=== PATIENT | female | born 1990 ===

== ENCOUNTER 2018-05-27 16:28 | Emergency (ER) | payer OTHER ==
[2018-05-27 16:54] VITALS: BP 120/73; PULSE 79; RESP 16; TEMP 99.4; O2SAT 100
[2018-05-27 16:55] VITALS: BMI 32.3
--- NOTE | 2018-05-27 17:53 | CP.PCM.CON ---
History of Present Illness - History of Present Illness History of Present Illness: Podiatry Consult note for Dr. Cortez 27 year old female with no PMHx presents to ED with wound to her left foot. Patient states that about 3 weeks ago she got a new tattoo and a week later she noticed open lesion to the top of her foot. She states that she had this happen once before with a different tattoo but states that it got better on its own. She went to her PMD who suggested she come to the ED for further evaluation. She denies any drainage or malodor coming from her left foot. Currently denies any n/v/f/c/sob/cp. Meds Home Medications: Home Medication List Medication Instructions Recorded Confirmed Type Cephalexin [cephalexin] 500 mg PO Q6 #28 cap 05/27/18 Rx Fluconazole [Diflucan] 150 mg PO ONCE #1 tab 05/27/18 Rx Allergies/Adverse Reactions: Allergies Allergy/AdvReac Type Severity Reaction Status Date / Time No Known Allergies Allergy Verified 05/27/18 16:57 Physical Exam - Constitutional Appears: Well, Non-toxic, No Acute Distress - Extremities Exam Additional comments: lower extremity focused exam: Vasc:DP and PT pulses palpable 2/4 b/l. CFT < 3 seconds to all digits b/l. Skin temperature warm to cool from proximal to distal b/l. No edema noted Derm:Open lesions noted to the dorsum of the left foot and ankle on areas where the tattoo was applied, open lesion meausring approximately 2 cm by 1.5 cm noted to the dorsum of the midfoot with a granular base, smaller lesions noted more proximal with dried sanguinous drainage noted, no erythema, no edema, no purulence, no malodor no drainage noted. Neuro: Gross sensation intact b/l Ortho: Tenderness on palpation to left dorsum of foot at location of wounds - Neurological Exam Neurological exam: Alert, Oriented x3 - Psychiatric Exam Psychiatric exam: Normal Affect, Normal Mood Results - Vital Signs Recent Vital Signs: Last Vital Signs Temp 99.4 F 05/27/18 16:54 Pulse 79 05/27/18 16:54 Resp 16 05/27/18 16:54 BP 120/73 05/27/18 16:54 Pulse Ox 100 05/27/18 16:54 Assessment & Plan - Assessment and Plan (Free Text) Assessment: 27 year old female with open wounds to her left dorsum foot Plan: patient examined and evaluated discussed in detail with attending, Dr. Cortez chart and vitals reviewed discussed the importance of local wound care and keeping area clean patient to clean wounds with warm water and them pat dry, apply bacitrain and bandaid and keep covered discussed with patient the need for a biopsy, she refused at this time but will consider in the future if wounds do not heel Abx given per ED PA patient to follow up with Dr. Cortez in office
--- NOTE | 2018-05-27 18:53 | ED PDOC ---
HPI: Wound Care - HPI Time Seen by Provider: 05/27/18 17:10 Chief Complaint (Nursing): Wound Check Chief Complaint (Provider): Wound Check History Per: Patient Exam Limitations: no limitations Onset/Duration Of Symptoms: Days Current Symptoms Are (Timing): Still Present Location Of Injury: Left: Foot Additional Complaint(s): 27 year old female presents to the ED for an evaluation of infected tattoo on left foot. Patient states beginning of May, she received a tattoo on left foot in [place], [place]. One week later, she noticed a pruritic-like rash on one portion of the tattoo. She went to her PMD who advised her to the ED for further evaluation. PMD: Francisco Parrish Past Medical History Reviewed: Historical Data, Nursing Documentation, Vital Signs Vital Signs: Last Vital Signs Temp 99.4 F 05/27/18 16:54 Pulse 79 05/27/18 16:54 Resp 16 05/27/18 16:54 BP 120/73 05/27/18 16:54 Pulse Ox 100 05/27/18 16:54 - Medical History PMH: No Chronic Diseases - Family History Family History: States: Unknown Family Hx - Home Medications Home Medications: Ambulatory Orders Medication Instructions Recorded Cephalexin [cephalexin] 500 mg PO Q6 #28 cap 05/27/18 Fluconazole [Diflucan] 150 mg PO ONCE #1 tab 05/27/18 - Allergies Allergies/Adverse Reactions: Allergies Allergy/AdvReac Type Severity Reaction Status Date / Time No Known Allergies Allergy Verified 05/27/18 16:57 Review of Systems ROS Statement: Except As Marked, All Systems Reviewed And Found Negative Skin: Positive for: Rash (left foot) Physical Exam - Reviewed Nursing Documentation Reviewed: Yes Vital Signs Reviewed: Yes - Physical Exam Appears: Positive for: Non-toxic Head Exam: Positive for: ATRAUMATIC, NORMAL INSPECTION, NORMOCEPHALIC Skin: Positive for: Warm, Dry, Rash (dorsum of left foot with non intact vesicle or erythema or warmth) Pulses-Radial (L): 2+ Extremity: Positive for: Normal ROM. Negative for: Tenderness, Pedal Edema, Deformity Neurologic/Psych: Positive for: Alert, Oriented (x3). Negative for: Motor/ Sensory Deficits - ECG O2 Sat by Pulse Oximetry: 100 (RA) Pulse Ox Interpretation: Normal Medical Decision Making Medical Decision Making: Time: 1710 Initial Plan: --Reevaluation Patient with Rx from PMD instructing pt. to go to ED for IV antibiotics and blood work. She prefers to forego blood work and oral medication instead. Pt evaluated by Dr. Greene, who discussed case with Dr. Cortez and agrees patient can start oral antibiotics and does not need IV antibiotics. Patient also agrees with care. She was offered IV antibiotics and blood work once again but refused. Clinical Impression: Allergic Reaction Upon provider evaluation patient is medically stable, and requires no further treatment in the ED at this time. Patient will be discharged with Cephalexin 500mg and Diflucan 150mg for skin rash. Counseling was provided and all questions were answered regarding diagnosis and need for follow up with Dr. Cortez. There is agreement to discharge plan. Return if symptoms persist or worsen. Scribe Attestation: Documented by Terence Campo, acting as a scribe for Bry Zelaya PA-C. Provider Scribe Attestation: All medical record entries made by the Scribe were at my direction and personally dictated by me. I have reviewed the chart and agree that the record accurately reflects my personal performance of the history, physical exam, medical decision making, and the department course for this patient. I have also personally directed, reviewed, and agree with the discharge instructions and disposition. Disposition - Clinical Impression Clinical Impression: Allergic reaction - Patient ED Disposition Is Patient to be Admitted: No - Disposition Referrals: Carlyle Cortez DPM [Medical Doctor] - Disposition: Routine/Home Disposition Time: 19:30 Condition: STABLE Additional Instructions: Follow up Dr. 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 Return to ED immediately if symptoms worsen. Prescriptions: Cephalexin [cephalexin] 500 mg PO Q6 #28 cap Fluconazole [Diflucan] 150 mg PO ONCE #1 tab Instructions: Skin Rash (DC) Forms: [employer] (Maldivian) Print Language: BELARUSIAN
== END 2018-05-27 18:15 | disposition home or self-care (01) ==
LOC: H.ER 16:28
DX: T78.40XA Allergy, unspecified, initial encounter (principal)